=== PATIENT | female | born 1940 | race Caucasian/White ===

== ENCOUNTER 2017-05-28 08:46 | Outpatient (CLI) | payer MEDICARE, BC ==
--- NOTE | 2017-05-28 09:28 | MMO ---
BILATERAL SCREENING MAMMOGRAM: History: Screening mammogram. Comparison: Reference made to exams dating back to April 2010. This study is interpreted with the assistance of computer aided detection. FINDINGS: There is heterogeneously dense breast parenchymal bilaterally. Biopsy marking clip through the upper outer right breast, middle depth, is again seen. There are scattered punctate benign appearing calc ifications of each breast, stable in appearance. There is a stable focal asymmetry of the outer left breast. No significant interval change. IMPRESSION: BIRADS 2 - benign findings. Annual screening mammography is recommended. POS: LORI
== END 2017-05-28 08:47 | disposition home or self-care (01) ==
LOC: SCSMAMMO 08:46
PROVIDERS: ATTEND Family Medicine
DX: Z12.31 Encounter for screening mammogram for malignant neoplasm of breast (principal)
CPT/HCPCS: 77067; G0202

== ENCOUNTER 2018-06-01 12:46 | Outpatient (CLI) | payer MEDICARE, BC ==
--- NOTE | 2018-06-01 15:03 | MMO ---
BILATERAL SCREENING MAMMOGRAMS: Date: 06/01/18 Comparison made to prior exams from 2016 and 2017. This patient's mammogram was interpreted with the assistance of computer-aided detection. FINDINGS: Heterogeneously dense glandular pattern. Scattered benign-appearing calcifications again noted bilate rally. Biopsy site marker in the upper right breast again noted. No mass or distortion. No interval c hange. Recommend one year follow-up. IMPRESSION: BIRADS 2: Benign Finding(s) POS: LORI
== END 2018-06-01 12:47 | disposition home or self-care (01) ==
LOC: SCSMAMMO 12:46
PROVIDERS: ATTEND Family Medicine
DX: Z12.31 Encounter for screening mammogram for malignant neoplasm of breast (principal)
CPT/HCPCS: 77067